=== PATIENT | male | born 1985 | race Caucasian/White ===

== ENCOUNTER 2023-11-14 01:03 | Emergency (ER) | payer MEDICAID ==
[~2023-11-14] VITALS: Ht 175.3 cm; Wt 70.5 kg
[~2023-11-14 01:03] MED LIST: CLON0.1T2 PO
[2023-11-14 01:11] VITALS: TEMP 98.3
[2023-11-14] MEDS: acetaminophen 325mg tablet PO ONE (02:35)
[2023-11-14] MEDS: ketorolac trometh 30MG/ML vial 30 MG/ML VIAL IM ONE (02:38)
[2023-11-14 02:51] VITALS: BP 137/91; PULSE 77; RESP 17; O2SAT 99
== END 2023-11-14 03:01 ==
LOC: ER 01:04
DX: S99.912A Unspecified injury of left ankle, initial encounter (principal); M54.9 Dorsalgia, unspecified; F10.129 Alcohol abuse with intoxication, unspecified; Z79.899 Other long term (current) drug therapy; Z56.0 Unemployment, unspecified; V89.2XXA Person injured in unspecified motor-vehicle accident, traffic, initial encounter; Y93.89 Activity, other specified; Y92.89 Other specified places as the place of occurrence of the external cause; Y99.8 Other external cause status
CPT/HCPCS: 72100; 73610; 96372; 99284; J1885

== ENCOUNTER 2023-11-27 11:33 | Outpatient (CLI) | payer MEDICAID | END 2023-11-27 23:59 | disposition home or self-care (01) | LOC: MRI02 11:33 | PROVIDERS: ATTEND Pediatrics Sports Medicine | DX: S32.010A Wedge compression fracture of first lumbar vertebra, initial encounter for closed fracture (principal); S92.009A Unspecified fracture of unspecified calcaneus, initial encounter for closed fracture; M25.572 Pain in left ankle and joints of left foot; M47.816 Spondylosis without myelopathy or radiculopathy, lumbar region; M54.50 Low back pain, unspecified; X58.XXXA Exposure to other specified factors, initial encounter; Y93.89 Activity, other specified; Y92.89 Other specified places as the place of occurrence of the external cause; Y99.8 Other external cause status | CPT/HCPCS: 72148 ==

== ENCOUNTER 2023-11-28 15:10 | Outpatient (CLI) | payer MEDICAID | END 2023-11-28 23:59 | disposition home or self-care (01) | LOC: RAD 15:10 | PROVIDERS: ATTEND Pediatrics Sports Medicine | DX: S92.002A Unspecified fracture of left calcaneus, initial encounter for closed fracture (principal); M25.572 Pain in left ankle and joints of left foot; X58.XXXA Exposure to other specified factors, initial encounter; Y93.89 Activity, other specified; Y92.89 Other specified places as the place of occurrence of the external cause; Y99.8 Other external cause status | CPT/HCPCS: 73700 ==

== ENCOUNTER 2024-06-09 10:58 | Outpatient (CLI) | payer MEDICAID | END 2024-06-09 23:59 | disposition home or self-care (01) | LOC: MRI02 10:58 | PROVIDERS: ATTEND Pediatrics Sports Medicine | DX: S72.422A Displaced fracture of lateral condyle of left femur, initial encounter for closed fracture (principal); M25.562 Pain in left knee; S83.282A Other tear of lateral meniscus, current injury, left knee, initial encounter; X58.XXXA Exposure to other specified factors, initial encounter; Y93.89 Activity, other specified; Y92.89 Other specified places as the place of occurrence of the external cause; Y99.8 Other external cause status | CPT/HCPCS: 73721 ==